=== PATIENT | male | born 1965 | race Caucasian/White ===

== ENCOUNTER 2019-02-10 17:00 | Emergency (ER) | payer OTHER ==
[2019-02-10] MEDS ORDERED: Ketorolac 60 MG/2 ML SDV IM ONE (18:25)
--- NOTE | 2019-02-10 18:32 | EDM.PDOC ---
ED HPI GENERAL MEDICAL PROBLEM - General Chief Complaint: Upper Extremity Injury/Pain Stated Complaint: FALL,POSS DISLOCATED LEFT SHOULDER Time Seen by Provider: 02/10/19 17:10 Source of Information: Reports: Patient, RN Notes Reviewed History Limitations: Reports: No Limitations - History of Present Illness INITIAL COMMENTS - FREE TEXT/NARRATIVE: Patient is a 53-year-old male who presents to the ED for evaluation of a left elbow and shoulder injury. Patient states that he slipped and fell on some snow that was over some ice, in a parking lot of a retail store. He states that he landed directly onto his left elbow. He notes that he has had pain in his left elbow and left shoulder since then. He does note that he has limited range of motion in the left shoulder, due to the pain. He is able to move elbow in all range of motion with little pain. He notes he does having some slight numbness and tingling into his hand, but nothing that is bothersome to him. He notes he is right-hand dominant. He states that his arm feels best when it is supported against his chest with his other arm. He is not had any other prior injuries to this shoulder, nor has he had any dislocation to the shoulder. He notes the pain is a strong intense pain, that is sharp. He did not take any sort of ibuprofen or Tylenol for pain management, they came directly here for management. He notes he is from [place], so he has no primary care provider in this area. He does note that he has a history of gastric bypass. Left Upper Arm Pain Score (Numeric/FACES): 9 - Related Data Allergies Allergy/AdvReac Type Severity Reaction Status Date / Time acetaminophen Allergy Other Verified 02/10/19 17:12 [From Lorcet ] hydrocodone Allergy Other Verified 02/10/19 17:12 [From Lorcet ] Home Meds: Home Meds Cyanocobalamin (Vitamin B-12) [B-12 Compliance] 1,000 mcg IJ ASDIRECTED [History] Diclofenac Sodium [Voltaren 1% Gel] 1 applic TP QID #1 tube 02/10/19 [Rx] Past Medical History HEENT History: Reports: None Cardiovascular History: Reports: None Respiratory History: Reports: None Genitourinary History: Reports: None Neurological History: Reports: None Psychiatric History: Reports: None Endocrine/Metabolic History: Reports: Obesity/BMI 30+ Hematologic History: Reports: None Immunologic History: Reports: None Oncologic (Cancer) History: Reports: None Dermatologic History: Reports: None - Infectious Disease History Infectious Disease History: Reports: None - Past Surgical History HEENT Surgical History: Reports: Oral Surgery GI Surgical History: Reports: Bariatric Procedure, Hernia, Inguinal, Hernia Repair/Other Other GI Surgeries/Procedures: 2008 was 550 lbs Musculoskeletal Surgical History: Reports: Arthroscopic Knee, Carpal Tunnel, Shoulder Surgery Other Musculoskeletal Surgeries/Procedures:: Right elbow surgery, rotatory cuff right Social & Family History - Family History Cardiac: Reports: CAD, [place] Neurological: Reports: CVA Endocrine/Metabolic: Reports: Diabetes, type II - Tobacco Use Smoking Status *Q: Current Every Day Smoker Years of Tobacco use: 40 Packs/Tins Daily: 1.5 - Caffeine Use Caffeine Use: Reports: Soda - Recreational Drug Use Recreational Drug Use: No Review of Systems - Review of Systems Review Of Systems: Comprehensive ROS is negative, except as noted in HPI. Musculoskeletal: Reports: Shoulder Pain (Left), Joint Pain (Left shoulder/elbow) . Denies: Neck Pain, Joint Swelling Skin: Denies: Bruising, Wound Neurological: Reports: Numbness (to left hand), Tingling (to left hand) ED EXAM, GENERAL - Physical Exam Exam: See Below Exam Limited By: No Limitations General Appearance: Alert, WD/WN, No Apparent Distress Eye Exam: Bilateral Eye: EOMI, Normal Inspection, PERRL Nose: Normal Inspection Throat/Mouth: Normal Inspection, Normal Lips, Normal Teeth, Normal Gums, Normal Oropharynx, Normal Voice, No Airway Compromise Head: Atraumatic, Normocephalic Neck: Normal Inspection Respiratory/Chest: No Respiratory Distress, Lungs Clear, Normal Breath Sounds, No Accessory Muscle Use, Chest Non-Tender Cardiovascular: Normal Peripheral Pulses, Regular Rate, Rhythm, No Murmur Peripheral Pulses: 3+: Radial (L), Radial (R) Extremities: Normal Inspection, Normal Capillary Refill, Limited Range of Motion (of left arm at shoulder d/t pain) Neurological: Alert, Oriented, Normal Cognition, No Motor/Sensory Deficits Psychiatric: Normal Affect, Normal Mood Skin Exam: Warm, Dry, Intact, Normal Color, No Rash Course - Vital Signs Last Recorded V/S: Last Vital Signs Temp 97.7 F 12/11/19 17:15 Pulse 80 02/10/19 17:15 Resp 16 02/10/19 17:15 BP 191/105 H 02/10/19 17:15 Pulse Ox 95 02/10/19 17:15 - Orders/Labs/Meds Orders: Active Orders 24 hr Category Date Time Status Elbow Min 3V Lt [CR] Stat Exams 02/10/19 17:18 Ordered Shoulder Comp Lt [CR] Stat Exams 02/10/19 17:12 Ordered Meds: Medications Discontinued Medications Generic Name Dose Route Start Last Admin Trade Name Annalee PRN Reason Stop Dose Admin Ketorolac Tromethamine 60 mg 02/10/19 18:25 02/10/19 18:32 Toradol IM 02/10/19 18:26 60 mg ONETIME ONE Administration - Re-Assessments/Exams Free Text/Narrative Re-Assessment/Exam: 02/10/19 18:31 Patient presents to the ED for the evaluation of a left shoulder and elbow injury. I did obtain a shoulder x-ray, and elbow x-ray, these did not elicit any sort of acute fracture or bony abnormality appreciated by myself or Dr. Mariscal. Patient will receive 60 mg IM Toradol for pain management. Official radiology read is pending at this time. Departure - Departure Time of Disposition: 19:07 Disposition: Home, Self-Care 01 Condition: Fair Clinical Impression: Left elbow pain Left shoulder strain Qualifiers: Encounter type: initial encounter Qualified Code(s): S46.912A - Strain of unspecified muscle, fascia and tendon at shoulder and upper arm level, left arm , initial encounter - Discharge Information *PRESCRIPTION DRUG MONITORING PROGRAM REVIEWED*: No *COPY OF PRESCRIPTION DRUG MONITORING REPORT IN PATIENT SERGEY: No Prescriptions: Diclofenac Sodium [Voltaren 1% Gel] 1 applic TP QID #1 tube Instructions: Musculoskeletal Pain Referrals: PCP,None [Primary Care Provider] - Forms: ED Department Discharge Additional Instructions: You have been evaluated in the ED for your left shoulder/elbow pain Your x-ray demonstrated no acute fracture or bony abnormality of your Left elbow or shoulder Please use ice as tolerated to the affected area. You may take Tylenol 500 mg q6 hrs for pain relief. Please do so until you have a tolerable level of pain with activity. Do not exceed 4000mg Tylenol in a 24 hour time period. You were given a prescription for diclofenac, this is a topical NSAID, please use to the shoulder 4 times daily as needed for further pain relief. This was electronically prescribed to the [facility] located near [facility]. Please return to ED if your symptoms should change or worsen. Sepsis Event Note - Evaluation Sepsis Screening Result: No Definite Risk - Focused Exam Vital Signs: Vital Signs Temp Pulse Resp BP Pulse Ox 02/10/19 17:15 97.7 F 80 16 191/105 H 95 Date Exam was Performed: 02/10/19 Time Exam was Performed: 19:07 - My Orders Last 24 Hours: My Active Orders 02/10/19 17:12 Shoulder Comp Lt [CR] Stat 02/10/19 17:18 Elbow Min 3V Lt [CR] Stat - Assessment/Plan Last 24 Hours: My Active Orders 02/10/19 17:12 Shoulder Comp Lt [CR] Stat 02/10/19 17:18 Elbow Min 3V Lt [CR] Stat
--- NOTE | 2019-02-11 10:20 | CR ---
Left shoulder: Four views of the left shoulder were obtained. Comparison: No prior shoulder exam. Mild joint space narrowing is seen within the acromioclavicular joint with slight degenerative sclerosis. Glenohumeral joint is within normal limits. No acute fracture, dislocation or other bony abnormality is seen. Impression: 1. Mild degenerative change within the acromioclavicular joint. 2. No additional abnormality is seen on left shoulder study. Diagnostic code #2 This report was dictated in [place] Standard Time
--- NOTE | 2019-02-11 10:20 | CR ---
Left elbow: Four views of the left elbow were obtained. Comparison: No prior elbow study. Joint spaces are preserved. No fracture, dislocation or other bony abnormality is seen. Impression: 1. No abnormality is identified on left elbow study. Diagnostic code #1 This report was dictated in [place] Standard Time
== END 2019-02-10 19:20 | disposition home or self-care (01) ==
LOC: JD.ED 17:00
DX: S46.912A Strain of unspecified muscle, fascia and tendon at shoulder and upper arm level, left arm, initial encounter (principal); M25.522 Pain in left elbow; E66.9 Obesity, unspecified; F17.210 Nicotine dependence, cigarettes, uncomplicated; Z88.6 Allergy status to analgesic agent; Z88.5 Allergy status to narcotic agent; Z68.36 Body mass index [BMI] 36.0-36.9, adult; W00.0XXA Fall on same level due to ice and snow, initial encounter; Y92.481 Parking lot as the place of occurrence of the external cause
CPT/HCPCS: 73030; 73080; 96372; 99283; J1885